=== PATIENT | female | born 1950 | race Caucasian/White ===

== ENCOUNTER → 2017-04-08 | Day surgery (SDC) | payer MEDICARE ==
[~2017-04-08] MED LIST: ACYCLOVIR400 MG PO; CRESTOR PO; DARVOCET-N 1001 TAB PO; FLAGYL PO; HYDROCHLOROTHIA25 MG PO; LEVAQUIN PO; LIPITOR; LYRICA PO; MIRALAX255 GM PO; NEXIUM PO; PRILOSEC PO; STOOL SOFTENER1 EAC1 PO; ZELNORM; ZOLOFT PO
--- NOTE | ~2017-04-08 | OR ---
Unit #: [id number] #: [id number] Patient: MILLER HAMLIN [id number] [address] [place], [place] [address] [id number] O MR#: [id number] NAME: MILLER HAMLIN. ROOM: Date of Procedure: 04/08/2017 Admission Date: 04/08/2017 Surgeon: Santi Sheldon Jr., M.D. : 1950 Attending Physician: Santi Sheldon Jr., M.D. Primary Care Physician: Soham Reddy M.D. PROCEDURE OPERATIVE NOTE INDICATION FOR PROCEDURE The patient is a 66-year-old white female who has been having problems with alternating constipation and diarrhea and some abdominal pain along with this. She has definitely noticed an acute change in her bowel habits and it was felt that she needed a colonoscopy. She has had no recent colonoscopies for some time. She is brought in at this time after prep at home for colonoscopy at her request. She understands the procedure including the risk, including that of perforation and bleeding and consents. PREOPERATIVE DIAGNOSIS Possible colitis with possible diverticulitis. POSTOPERATIVE DIAGNOSIS Normal colonoscopy to the distal ileum with only a fair prep with liquid stool throughout the entire length of the colon. ANESTHESIA MAC anesthesia. INDICATIONS FOR PROCEDURE The patient is a 53-year-old white male with no previous colonoscopy who was brought in at this time desiring screening colonoscopy to rule out occult pathology. The patient understands the procedure including the risks and consents. ANESTHESIA MAC. SURGEON Dr. Santi Sheldon Jr. OPERATION Flexible colonoscopy to the distal ileum. PROCEDURE The patient was positioned in the Persaud position with the left side down after being given MAC anesthesia. Digital rectal examination was performed which revealed no palpable masses or tenderness. No blood or stool within the rectal ampulla. The Olympus colonoscope was advanced in the anal canal up to the rectum and retroflexed down to the area of the anorectal region. There was no evidence of any fissures, no significant Unit #: [id number] #: [id number] Patient: MILLER HAMLIN internal hemorrhoids. The scope was then straightened and advanced up in the rectosigmoid and the sigmoid and descending colon areas around the splenic flexure and the transverse colon, around the hepatic flexure and the ascending colon, down to the area of the cecum. The light tip of the scope could be seen transilluminating through the right lower quadrant abdominal wall area. The scope was advanced up to the distal ileum approximately 10 to 12 inches. There was no evidence of any ileitis or inflammatory bowel disease. The scope was slowly removed. There were no tumors, polyps, cancer, AVMs. No evidence of colitis, diverticulosis or diverticulitis. The caliber of her colon appeared normal throughout without evidence of narrowing or obstruction. There was liquid stool throughout the entire length of the colon that could have obscured a small polyp or area of colitis but this was not grossly found. The scope was removed. The patient tolerated the procedure well and was discharged in satisfactory condition. Dictated by... Santi Sheldon Jr., MYessenia. ANABELA/xavier TD: 04/09/2017 06:51 JOB #: [id number] PROCEDURE OPERATIVE NOTE Page 1 of 1 X Santi Sheldon MD X PROCEDURE OPERATIVE NOTE
== END | disposition home or self-care (01) ==
LOC: COPS 10:48
DX: K59.00 Constipation, unspecified (principal); R19.7 Diarrhea, unspecified; K21.9 Gastro-esophageal reflux disease without esophagitis; E78.5 Hyperlipidemia, unspecified; I10 Essential (primary) hypertension; F41.9 Anxiety disorder, unspecified; F32.9 Major depressive disorder, single episode, unspecified; M16.9 Osteoarthritis of hip, unspecified; M47.812 Spondylosis without myelopathy or radiculopathy, cervical region; Z87.19 Personal history of other diseases of the digestive system; Z87.440 Personal history of urinary (tract) infections; Z88.5 Allergy status to narcotic agent; Z79.899 Other long term (current) drug therapy; Z90.49 Acquired absence of other specified parts of digestive tract; Z90.710 Acquired absence of both cervix and uterus; Z98.890 Other specified postprocedural states
CPT/HCPCS: J2250